=== PATIENT | female | born 1985 | race Caucasian/White ===

== ENCOUNTER 2017-04-16 16:05 | Emergency (ER) | payer MEDICAID, OTHER ==
[2017-04-16 16:06] VITALS: BMI 25.7
[2017-04-16 16:19] VITALS: RESP 16; O2SAT 100
--- NOTE | 2017-04-16 16:42 | C.PDOC ---
History Of Present Illness 31 year old female presents to ED for evaluation of right lower rib area discomfort described as aching and dull for the past 2 weeks. Pain is digitally and positionally reproducible. Notes that she carries her on the right side at the area of discomfort. Denies chest pain, shortness of breath, cough, n /v/d, back pain, fever, chills, or any other associated symptoms at this time. Notes that she currently has her menstrual period. Time Seen by Provider: 04/16/17 16:31 Chief Complaint (Nursing): Abdominal Pain History Per: Patient History/Exam Limitations: no limitations Onset/Duration Of Symptoms: Days Current Symptoms Are (Timing): Still Present Radiation Of Pain To:: None Quality Of Discomfort: Dull, Aching Associated Symptoms: denies: Nausea, Vomiting, Diarrhea, Loss Of Appetite, Back Pain, Chest Pain, Constipation, Urinary Symptoms Alleviating Factors: None Recent travel outside of the [place]: No Additional History Per: Patient Abnormal Vaginal Bleeding: No Past Medical History Reviewed: Historical Data, Nursing Documentation, Vital Signs Vital Signs: Last Vital Signs Temp 98.2 F 04/16/17 16:15 Pulse 76 04/16/17 16:15 Resp 16 04/16/17 16:15 BP 112/72 04/16/17 16:15 Pulse Ox 100 04/16/17 16:42 - Medical History PMH: Arthritis (RA) - [facility] Procedures DELIVERY OF PRODUCTS OF CONCEPTION, EXTERNAL APPROACH (02/25/16) REPAIR PERINEUM SKIN, EXTERNAL APPROACH (02/25/16) Family History: States: No Known Family Hx - Social History Hx Alcohol Use: No Hx Substance Use: No - Immunization History Hx Tetanus Toxoid Vaccination: No Hx Influenza Vaccination: No Hx Pneumococcal Vaccination: No Review Of Systems Except As Marked, All Systems Reviewed And Found Negative. Constitutional: Negative for: Fever, Chills Cardiovascular: Negative for: Chest Pain, Palpitations Respiratory: Negative for: Cough, Shortness of Breath Gastrointestinal: Negative for: Nausea, Vomiting, Abdominal Pain Musculoskeletal: Positive for: Other (right lower rib area pain). Negative for : Neck Pain, Back Pain Neurological: Negative for: Headache, Dizziness Physical Exam - Physical Exam Appears: Non-toxic, No Acute Distress Skin: Normal Color, Warm, Dry, No Rash Head: Atraumatic, Normacephalic Eye(s): bilateral: Normal Inspection Oral Mucosa: Moist Neck: Normal ROM, Supple Chest: Symmetrical, No Deformity, Tenderness (mild right lower distal floating rib (rib 8?) tenderness ), No Ecchymosis Cardiovascular: Rhythm Regular, No Murmur Respiratory: Normal Breath Sounds, No Rales, No Rhonchi, No Wheezing Gastrointestinal/Abdominal: Soft, No Tenderness Back: No CVA Tenderness Extremity: Normal ROM, No Deformity, No Swelling Neurological/Psych: Oriented x3, Normal Speech, Normal Cognition ED Course And Treatment O2 Sat by Pulse Oximetry: 100 (RA) Pulse Ox Interpretation: Normal Medical Decision Making Medical Decision Making: R lower floating rib discomfort/costochondritis- has an at home, carries on R side-dominant. NO GB involvment abd benign. NOT per pt. Defers w/u with informed consent. Disposition Doctor Will See Patient In The: Office Counseled Patient/Family Regarding: Studies Performed, Diagnosis - Disposition Referrals: [facility] [Outside] [facility] [Outside] Disposition: HOME/ ROUTINE Disposition Time: 16:42 Condition: GOOD Additional Instructions: continue ice packs to R lower ribs as needed Carry baby on LEFT side as able. Pain usually lasts 2-3 weeks. Return to ED for any significant changes or worstening of your condition Motrin 400-600 mg every 6 hours as needed ice packs 1/2 hour per hour as needed NO heat therapies nor hot showers to this area! Follow-up in our outpatient Clinic (free) as needed. Instructions: Costochondritis (ED) Forms: [facility] (Yoruba) - Clinical Impression Clinical Impression: Costochondritis - Scribe Statement The provider has reviewed the documentation as recorded by the Gedra Neely All medical record entries made by the Brianneibnicci were at my direction and personally dictated by me. I have reviewed the chart and agree that the record accurately reflects my personal performance of the history, physical exam, medical decision making, and the department course for this patient. I have also personally directed, reviewed, and agree with the discharge instructions and disposition.
[2017-04-16 17:23] VITALS: BP 110/70; PULSE 74; TEMP 98
== END 2017-04-16 17:07 | disposition home or self-care (01) ==
LOC: C.ER 16:05
DX: M94.0 Chondrocostal junction syndrome [Tietze] (principal)